=== PATIENT | male | born 1945 | race Caucasian/White ===

== ENCOUNTER → 2021-03-10 14:40 | Outpatient (BNVA) | payer MEDICARE, BC, SELFPAY | PROVIDERS: PCP Internal Medicine; Visit Provider Urology | DX: N40.1 Benign prostatic hyperplasia with lower urinary tract symptoms (principal); N13.8 Other obstructive and reflux uropathy; R97.20 Elevated prostate specific antigen [PSA] | CPT/HCPCS: 99212 ==

== ENCOUNTER → 2022-03-08 08:26 | Outpatient (BNVA) | payer MEDICARE, BC, SELFPAY | PROVIDERS: PCP Internal Medicine; Visit Provider Urology | DX: N40.1 Benign prostatic hyperplasia with lower urinary tract symptoms (principal); N13.8 Other obstructive and reflux uropathy; R97.20 Elevated prostate specific antigen [PSA] | CPT/HCPCS: 51798; 99212 ==

== ENCOUNTER 2023-03-08 08:32 | Outpatient (AMB) | payer MEDICARE, BC, SELFPAY ==
--- NOTE | 2023-03-08 08:32 | A.OFFVIS_ITS ---
Intake Intake Visit Reasons: 1Y PSA/MED(set) Intake Note: Patient is present for Follow Up PSA/MED Urology Med: Finasteride, Terazosin Antibiotic Allergy: None Blood Thinner: None PVR: 44ML Medication List - Last Reconciled 03/08/23 by Gurvinder Chapman MD bisoprolol fumarate mg PO finasteride 5 mg PO DAILY 90 days losartan 100 mg PO DAILY rosuvastatin 20 mg PO DAILY terazosin 10 mg PO BEDTIME 90 days HPI HPI Comments History of Present Illness Details Jeff KRISHNAN is a very pleasant male. He is a patient of Dr Castro. He is seen for the following urologic conditions. - lower urinary tract symptoms - elevated PSA PVR 44cc PSA 1.0 Was not able to come off testosterone Can cut finasteride back to Saturday, Saturday, Saturday Otherwise fairly happy with urinary performed Lower Urinary Tract Symptoms: Discussed potential procedure Doing well combination therapy Current visit is for further evaluation of, lower urinary tract symptoms, predominate obstructive symptoms. Current treatment includes medication, - alpha alec, terazosin 10mg - , finasteride. Prior treatments include medication, alpha blockers, hytrin/terazosin 5mg. Prostate Symptom Score 04/11 Moderate (9-19), Bother 2 09/12 , Moderate (9-19), Bother 2. Symptoms include 04/11 incomplete emptying, weak stream, straining, nocturia (>2),, and are improving 09/12 , incomplete emptying, weak stream, nocturia (>2), and are stable. Results from testing include renal/bladder us Yes date 05/07/2017 PVR 150 prostate size 40 Prior Prostate Score moderate. PSA 04/11 4-5, 05/12 4.2, 02/10 2.3, 03/13 1.5, 03/14 1.4, 02/14 1.2 Prostate volume 30-50gm. Testing at next visit will include uroflow, bladder scan. Treatment plan continue with current medications. Elevated PSA/Abnormal JODY: He presents for further evaluation of elevated PSA - fallen as appropriate with 5AR. Current management is observation. Laboratory investigations include a total PSA evaluation 04/11 4.4. Individualized Prostate Cancer Risk Calculator 5-10% high risk, Would like to continue with observation and understands and accepts the risks of a possible delay in diagnosis. Therapeutic plan will be continued surveillance. [facility], [facility] Medical History Bladder outlet obstruction Nocturia Weak urinary stream Review of Systems Const Denies chills and Denies fever(s) Card Reports no additional complaints and Denies syncope Resp Denies cough GI Denies abdominal pain and Denies heartburn Reports as per HPI and Denies change in libido Neuro Denies syncope Psych Denies change in libido Endo Denies change in libido Physical Exam Const General: cooperative, healthy appearing, comfortable and no acute distress Orientation/consciousness: patient oriented x3 HEENT Face and sinus: Yes normal facial exam Mouth: moist mucous membranes Neck Neck: Yes normal visual inspection, Yes full ROM and Yes trachea midline Chest Chest palpation & inspection: normal inspection of the chest Resp Effort & Inspection: normal respiratory effort, able to speak in complete sentences and no respiratory distress GI Inspection: Yes normal to inspection Back/Spine/Pelvis Cervical Spine: normal cervical lordosis Thoracic/Lumbar Spine: thoracic and lumbar spine normal to inspection Skin General skin exam: no rashes or lesions noted Neuro General: patient oriented x3, gait normal, tone normal and moves all extremities Extrem General: Yes normal to inspection and Yes capillary refill normal Office Procedures Post Void Residual Post Residual Void Post Void Residual (PVR): 44 [id number] Void Residual by ultrasound Results AMB Urinalysis, Automated UA Leukoctes 0 Augustina/uL Last Edit by ELZA Moya on 03/08/23 08:45 UA Nitrite Negative Last Edit by ELZA Moya on 03/08/23 08:45 UA Urobilinogen 0.2 mg/dL Last Edit by ELZA Moya on 03/08/23 08:4 5 UA Protein 0 mg/dL Last Edit by ELZA Moya on 03/08/23 08:45 UA pH 5.0 Last Edit by ELZA Moya on 03/08/23 08:45 UA Blood 25 Barry/uL Last Edit by ELZA Moya on 03/08/23 08:45 UA Specific [place] 1.020 Last Edit by ELZA Moya on 03/08/23 08: 45 UA Ketone Negative Last Edit by ELZA Moya on 03/08/23 08:45 UA Bilirubin 0 mg/dL Last Edit by Glendy Richmond, RMA on 03/08/23 08:45 UA Glucose 0 mg/dL Last Edit by Glendy Richmond, A on 03/08/23 08:45 Results Reviewed Results Reviewed: Laboratory Last Values Urine pH (Auto) 5.0 03/08/23 08:37 Specific [place] (Auto) 1.020 03/08/23 08:37 Urine Protein (Auto) 0 mg/dL 03/08/23 08:37 Glucose (UA)(Auto) 0 mg/dL 03/08/23 08:37 Urine Ketones (Auto) Negative 03/08/23 08:37 Urine Blood (Auto) 25 Barry/uL 03/08/23 08:37 Urine Nitrite (Auto) Negative 03/08/23 08:37 Urine Bilirubin (Auto) 0 mg/dL 03/08/23 08:37 Urine Urobilinogen (Auto) 0.2 mg/dL 03/08/23 08:37 Leukocyte Esterase (Auto) 0 Augustina/uL 03/08/23 08:37 Assessment & Plan Assessment & Plan (1) Elevated PSA: Code(s): R97.20 - Elevated prostate specific antigen [PSA] (2) BPH w urinary obs/LUTS: Code(s): N40.1 - Benign prostatic hyperplasia with lower urinary tract symptoms; N13.8 - Other obstructive and reflux uropathy Plan One year follow-up PSA Orders: Orders Prostate Specific Antigen 364 Days N13.8 - Other obstructive and reflux uropathy, N40.1 - Benign prostatic hyperplasia with lower urinary tract symptoms AMB Urinalysis Automated Today Z13.9 - Encounter for screening, unspecified AMB Post Void Residual by ultrasound Today N13.8 - Other obstructive and reflux uropathy, N40.1 - Benign prostatic hyperplasia with lower urinary tract symptoms Patient Instructions: Imaging studies, laboratory and physical exam results were discussed and reviewed in detail. No major barriers to patient understanding were identified. An opportunity to ask questions regarding the treatment plan was provided. All questions were answered. The patient expressed understanding and agreement with the above treatment plan. The patient is aware they should contact our office by phone for worsening of their current condition or the appearance of new urologic symptoms. Compliance is encouraged with any medications and followup testing that is ordered. It is a privilege to participate in the urologic care of your patient. If you have any questions or concerns regarding treatment for the above conditions, or other urologic issues, please do not hesitate to contact me. The office telephone contact is [phone]. This note is constructed using voice recognition software. While every effort has been made to ensure accuracy teasel setter errors may have been included. Yours sincerely, Dr Gurvinder Chapman MD, JANET [facility] - Urology Providers of Expert, Compassionate Care for the Genitourinary System Coding Level of Care Code Est Pt Level 4 (22430) Diagnoses Elevated PSA R97.20 BPH w urinary obs/LUTS N40.1; N13.8 CPT Codes Post Residual Void - PVR CPT Code: 63231-Eokh Void Residual by ultrasound ([id number])
== END 2023-03-08 08:56 | disposition home or self-care (01) ==
PROVIDERS: Visit Provider Urology
DX: R97.20 Elevated prostate specific antigen [PSA] (principal); N40.1 Benign prostatic hyperplasia with lower urinary tract symptoms; N13.8 Other obstructive and reflux uropathy
CPT/HCPCS: 99214

== ENCOUNTER → 2023-03-08 08:32 | Outpatient (BNVA) | payer MEDICARE, BC, SELFPAY | PROVIDERS: Visit Provider Urology | DX: R97.20 Elevated prostate specific antigen [PSA] (principal); N40.1 Benign prostatic hyperplasia with lower urinary tract symptoms; N13.8 Other obstructive and reflux uropathy | CPT/HCPCS: 51798; 99212 ==

== ENCOUNTER 2024-07-01 08:30 | Outpatient (AMB) | payer MEDICARE, BC, SELFPAY ==
--- NOTE | 2024-07-01 08:33 | A.OFFVIS_ITS ---
Intake Visit Reasons: 1Y PSA(set) Intake Note: Patient is present for 1y Follow Up/PSA Urology Med: Finasteride, Terazosin Antibiotic Allergy: None Blood Thinner: None Account Executive [employer]working Required: No Allergies No Known Allergies Allergy (Verified 07/01/24 08:34) HPI Comments Details: Jeff KRISHNAN is a very pleasant male. He is a patient of Dr Castro. He is seen for the following urologic conditions. - lower urinary tract symptoms - elevated PSA Yearly follow-up remains on combination terazosin finasteride PSA 1.0 12 month follow-up PVR JODY 1+ prostate Lower Urinary Tract Symptoms: Discussed potential procedure Doing well combination therapy Current visit is for further evaluation of, lower urinary tract symptoms, predominate obstructive symptoms. Current treatment includes medication, - alpha alec, terazosin 10mg - , finasteride. Prior treatments include medication, alpha blockers, hytrin/terazosin 5mg. Prostate Symptom Score 04/11 Moderate (9-19), Bother 2 09/12 , Moderate (9-19), Bother 2. Symptoms include 04/11 incomplete emptying, weak stream, straining, nocturia (>2),, and are improving 09/12 , incomplete emptying, weak stream, nocturia (>2), and are stable. Results from testing include renal/bladder us Yes date 05/07/2017 PVR 150 prostate size 40 Prior Prostate Score moderate. PSA 04/11 4-5, 05/12 4.2, 02/10 2.3, 03/13 1.5, 03/14 1.4, 02/14 1.2 Prostate volume 30-50gm. Testing at next visit will include uroflow, bladder scan. Treatment plan continue with current medications. Elevated PSA/Abnormal JODY: He presents for further evaluation of elevated PSA - fallen as appropriate with 5AR. Current management is observation. Laboratory investigations include a total PSA evaluation 04/11 4.4. Individualized Prostate Cancer Risk Calculator 5-10% high risk, Would like to continue with observation and understands and accepts the risks of a possible delay in diagnosis. Therapeutic plan will be continued surveillance. [facility] Medical History Bladder outlet obstruction Nocturia Weak urinary stream Assessment & Plan Assessment & Plan (1) BPH w urinary obs/LUTS: Code(s): N40.1 - Benign prostatic hyperplasia with lower urinary tract symptoms; N13.8 - Other obstructive and reflux uropathy Category: Medical (2) Elevated PSA: Code(s): R97.20 - Elevated prostate specific antigen [PSA] Category: Medical Plan Twelve month follow-up Orders: Orders Prostate Specific Antigen 364 Days R97.20 - Elevated prostate specific antigen [PSA] AMB Urinalysis Automated Today Z13.9 - Encounter for screening, unspecified Patient Instructions: Imaging studies, laboratory and physical exam results were discussed and reviewed in detail. No major barriers to patient understanding were identified. An opportunity to ask questions regarding the treatment plan was provided. All questions were answered. The patient expressed understanding and agreement with the above treatment plan. The patient is aware they should contact our office by phone for worsening of their current condition or the appearance of new urologic symptoms. Compliance is encouraged with any medications and followup testing that is ordered. It is a privilege to participate in the urologic care of your patient. If you have any questions or concerns regarding treatment for the above conditions, or other urologic issues, please do not hesitate to contact me. The office telephone contact is [phone]. This note is constructed using voice recognition software. While every effort has been made to ensure accuracy counter molder errors may have been included. Yours sincerely, Dr Gurvinder Chapman MD, JANET [facility] - Urology Providers of Expert, Compassionate Care for the Genitourinary System Coding Level of Care Code Est Pt Level 4 (23745) Diagnoses BPH w urinary obs/LUTS N40.1; N13.8 Elevated PSA R97.20
== END 2024-07-01 08:54 | disposition home or self-care (01) ==
LOC: HO.HUSH 08:30
PROVIDERS: PCP Internal Medicine; Visit Provider Urology
DX: N40.1 Benign prostatic hyperplasia with lower urinary tract symptoms (principal); N13.8 Other obstructive and reflux uropathy; R97.20 Elevated prostate specific antigen [PSA]; Z13.9 Encounter for screening, unspecified
CPT/HCPCS: 99214

== ENCOUNTER → 2024-07-01 08:30 | Outpatient (BNVA) | payer MEDICARE, BC, SELFPAY | PROVIDERS: PCP Internal Medicine; Visit Provider Urology | DX: N40.1 Benign prostatic hyperplasia with lower urinary tract symptoms (principal); N13.8 Other obstructive and reflux uropathy; R97.20 Elevated prostate specific antigen [PSA] | CPT/HCPCS: 81003; 99212 ==

== ENCOUNTER 2025-07-01 09:01 | Outpatient (AMB) | payer MEDICARE, BC, SELFPAY ==
--- NOTE | 2025-07-01 09:14 | A.OFFVIS_ITS ---
Intake Visit Reasons: 1y/PSA/PVR(set) Intake Note: Patient is present for 1y Follow Up/PSA Urology Med: Finasteride, Terazosin Antibiotic Allergy: None Blood Thinner: None Labs done 06/18/25 : PSA 1.0 PVR:21 mls Logistics Clerk Required: No Accompanied by: Self / Same As Patient Allergies No Known Allergies Allergy (Verified 07/01/25 09:23) HPI Comments Details: Jeff KRISHNAN is a very pleasant male. He is a patient of Dr Castro. He is seen for the following urologic conditions. - lower urinary tract symptoms - elevated PSA Yearly follow-up remains on combination terazosin finasteride PSA 1.0 12 month follow-up PVR JODY 1+ prostate Discussed voiding parameters regarding strength of stream and emptying Thinks he is doing well Discussed indications for procedure Lower Urinary Tract Symptoms: Discussed potential procedure Doing well combination therapy Current visit is for further evaluation of, lower urinary tract symptoms, predominate obstructive symptoms. Current treatment includes medication, - alpha alec, terazosin 10mg - , finasteride. Prior treatments include medication, alpha blockers, hytrin/terazosin 5mg. Prostate Symptom Score 04/11 Moderate (9-19), Bother 2 09/12 , Moderate (9-19), Bother 2. Symptoms include 04/11 incomplete emptying, weak stream, straining, nocturia (>2),, and are improving 09/12 , incomplete emptying, weak stream, nocturia (>2), and are stable. Results from testing include renal/bladder us Yes date 05/07/2017 PVR 150 prostate size 40 Prior Prostate Score moderate. PSA 04/11 4-5, 05/12 4.2, 02/10 2.3, 03/13 1.5, 03/14 1.4, 02/14 1.2 Prostate volume 30-50gm. Testing at next visit will include uroflow, bladder scan. Treatment plan continue with current medications. Elevated PSA/Abnormal JODY: He presents for further evaluation of elevated PSA - fallen as appropriate with 5AR. Current management is observation. Laboratory investigations include a total PSA evaluation 04/11 4.4. Individualized Prostate Cancer Risk Calculator 5-10% high risk, Would like to continue with observation and understands and accepts the risks of a possible delay in diagnosis. Therapeutic plan will be continued surveillance. [facility] Medical History Bladder outlet obstruction Nocturia Weak urinary stream Review of Systems Const Denies chills and Denies fever(s) Card Reports no additional complaints and Denies syncope Resp Denies cough GI Denies abdominal pain and Denies heartburn Reports as per HPI and Denies change in libido Neuro Denies syncope Psych Denies change in libido Endo Denies change in libido Physical Exam Const General: cooperative, healthy appearing, comfortable and no acute distress Orientation/consciousness: patient oriented x3 HEENT Face and sinus: Yes normal facial exam Mouth: moist mucous membranes Neck Neck: Yes normal visual inspection, Yes full ROM and Yes trachea midline Chest Chest palpation & inspection: normal inspection of the chest Resp Effort & Inspection: normal respiratory effort, able to speak in complete sentences and no respiratory distress GI Inspection: Yes normal to inspection Back/Spine/Pelvis Cervical Spine: normal cervical lordosis Thoracic/Lumbar Spine: thoracic and lumbar spine normal to inspection Skin General skin exam: no rashes or lesions noted Neuro General: patient oriented x3, gait normal, tone normal and moves all extremities Extrem General: Yes normal to inspection and Yes capillary refill normal Office Procedures Post Void Residual Post Residual Void Post Void Residual (PVR): 21 [id number] Void Residual by ultrasound Results AMB Urinalysis, Automated UA Leukoctes 15 Augustina/uL Last Edit by SANYA Leblanc on 07/01/25 09:25 UA Nitrite Negative Last Edit by Marianna Cunha [facility] on 07/01/25 09:25 UA Urobilinogen 0.2 mg/dL Last Edit by Marianna Cunha CCM on 07/01/25 09:25 UA Protein 0 mg/dL Last Edit by Marianna Cunha CCM on 07/01/25 09:25 UA pH 6.0 Last Edit by Marianna Cunha CCM on 07/01/25 09:25 UA Blood 0 Barry/uL Last Edit by Marianna Cunha CCM on 07/01/25 09:25 UA Specific [place] 1.015 Last Edit by Marianna Cunha CCM on 07/01/25 09:2 5 UA Ketone Negative Last Edit by Marianna Cunha CCM on 07/01/25 09:25 UA Bilirubin 0 mg/dL Last Edit by SANYA Leblanc on 07/01/25 09:25 UA Glucose 0 mg/dL Last Edit by SANYA Leblanc on 07/01/25 09:25 Results Reviewed Results Reviewed: Laboratory Last Values Urine pH (Auto) 6.0 07/01/25 09:24 Specific [place] (Auto) 1.015 07/01/25 09:24 Urine Protein (Auto) 0 mg/dL 07/01/25 09:24 Glucose (UA)(Auto) 0 mg/dL 07/01/25 09:24 Urine Ketones (Auto) Negative 07/01/25 09:24 Urine Blood (Auto) 0 Barry/uL 07/01/25 09:24 Urine Nitrite (Auto) Negative 07/01/25 09:24 Urine Bilirubin (Auto) 0 mg/dL 07/01/25 09:24 Urine Urobilinogen (Auto) 0.2 mg/dL 07/01/25 09:24 Leukocyte Esterase (Auto) 15 Augustina/uL 07/01/25 09:24 Assessment & Plan Assessment & Plan (1) BPH w urinary obs/LUTS: Code(s): N40.1 - Benign prostatic hyperplasia with lower urinary tract symptoms; N13.8 - Other obstructive and reflux uropathy Category: Medical (2) Elevated PSA: Code(s): R97.20 - Elevated prostate specific antigen [PSA] Category: Medical Plan Twelve month follow-up PVR Patient Instructions: This note is constructed using voice recognition software. While every effort has been made to ensure accuracy senior medical transcriptionist errors may have been included. Imaging studies, laboratory and physical exam results were discussed and reviewed in detail. No major barriers to patient understanding were identified. An opportunity to ask questions regarding the treatment plan was provided. All questions were answered. The patient expressed understanding and agreement with the above treatment plan. The patient is aware they should contact our office by phone for worsening of their current condition or the appearance of new urologic symptoms. Compliance is encouraged with any medications and followup testing that is ordered. It is a privilege to participate in the urologic care of your patient. If you have any questions or concerns regarding treatment for the above conditions, or other urologic issues, please do not hesitate to contact me. The office telephone contact is [phone]. Sincerely, Dr Gurvinder Chapman MD, JANET [facility] - Urology Compassionate Specialist Care for the Genitourinary System Coding Level of Care Code Est Pt Level 4 (47587) Complex EM visit Add On G2211 Diagnoses BPH w urinary obs/LUTS N40.1; N13.8 Elevated PSA R97.20 CPT Codes Post Residual Void - PVR CPT Code: 67713-Nuxv Void Residual by ultrasound ([id number])
== END 2025-07-01 09:38 | disposition home or self-care (01) ==
LOC: HO.HUSH 09:02
PROVIDERS: PCP Internal Medicine; Visit Provider Urology
DX: N40.1 Benign prostatic hyperplasia with lower urinary tract symptoms (principal); N13.8 Other obstructive and reflux uropathy; R97.20 Elevated prostate specific antigen [PSA]
CPT/HCPCS: 99213

== ENCOUNTER → 2025-07-01 09:01 | Outpatient (BNVA) | payer MEDICARE, BC, SELFPAY | PROVIDERS: PCP Internal Medicine; Visit Provider Urology | DX: N40.1 Benign prostatic hyperplasia with lower urinary tract symptoms (principal); N13.8 Other obstructive and reflux uropathy; R97.20 Elevated prostate specific antigen [PSA] | CPT/HCPCS: 51798; 99212 ==